=== PATIENT | female | born 2000 | race Caucasian/White ===

== ENCOUNTER 2020-06-15 21:01 | Inpatient (IN) ==
[2020-06-15 22:34] LABS: ABS Lymphocytes 1.9 10^3/ul (1.0-4.8); ABS Monocytes 0.5 10^3/ul (0-0.8); ABS Neutrophils 3.2 10^3/ul (1.5-7.7); Eosinophil % 0.8 %; Hematocrit 38 % (35-47); Hemoglobin 12.9 g/dL (12.0-16.0); Lymphocyte % 33.8 %; Mean Corpuscular HGB Conc 34 g/dL (31-36); Mean Corpuscular Hemoglobin 30 pg (27-31); Mean Corpuscular Volume 89 fL (80-97); Mean Platelet Volume 7.9 fL (7.4-10.4); Platelet Count 259 10^3/uL (150-450); Red Blood Count 4.31 10^6 /uL (3.70-4.87); Red Cell Distribution Width 13 % (10-15); White Blood Count 5.6 10^3/uL (3.5-10.8)
[2020-06-15 22:35] LABS: ALT 17 U/L (7-52); AST 18 U/L (13-39); Albumin 4.6 g/dL (3.2-5.2); Albumin/Globulin Ratio 1.6 (1-3); Alkaline Phosphatase 59 U/L (34-104); Anion Gap 6 mmol/L (2-11); BUN/Creatinine Ratio 14.9 (8-20); Blood Urea Nitrogen 11 mg/dL (6-24); CO2 Carbon Dioxide 26 mmol/L (22-32); Calcium 9.6 mg/dL (8.6-10.3); Chloride 106 mmol/L (101-111); EGFR African American 121.1 (>60); EGFR Non-African American 100.1 (>60); Globulin 2.8 g/dL (2-4); Glucose 96 mg/dL (70-100); Potassium 4.2 mmol/L (3.5-5.0); Sodium 138 mmol/L (135-145); Total Protein 7.4 g/dL (6.4-8.9)
[2020-06-15 22:41] LABS: HCG Pregnancy < 0.60 mIU/mL
[2020-06-15 22:48] LABS: Acetaminophen < 15 mcg/mL; Alcohol, S < 10 mg/dL (<10); Salicylate < 2.50 mg/dL (<30)
[2020-06-15 23:03] LABS: TSH Ultra Thyroid Stim Horm 1.18 mcIU/mL (0.34-5.60)
[2020-06-16 00:26] LABS: Urine Appearance Clear; Urine Bilirubin Negative (Negative); Urine Blood 3+ (Negative); Urine Color Straw; Urine Glucose Negative (Negative); Urine Ketones Negative (Negative); Urine Nitrite Negative (Negative); Urine Protein Negative (Negative); Urine Specific Gravity 1.004 (1.002-1.030); Urine Urobilinogen Negative (Negative)
[2020-06-16 00:34] LABS: Urine Bacteria 1+ (Absent); Urine Red Blood Cell 2+(6-10/hpf) (Absent); Urine Squamous Epithelial Cell Present (Absent); Urine White Blood Cell Trace(0-5/hpf) (Absent)
[2020-06-16 00:45] LABS: Urine Benzodiazepine Screen None Detected (None Detect); Urine Cannabinoids Screen None Detected (None Detect); Urine Opiates Screen None Detected (None Detect)
[2020-06-16] MEDS ORDERED: Al Hydrox/Mg Hydrox/Simet LIQ 30 ML UDC PO PRN (10:38)
[2020-06-17 09:23] LABS: HDL Cholesterol 56.4 mg/dL
[2020-06-17] MEDS: Vitamin THERAPEUTIC TAB PO SCH (13:06)
[2020-06-17] MEDS: CMCS: OMEGA-3 FATTY ACID 1000 mg(NF) PO SCH (16:33)
[2020-06-18] MEDS: CMCS: OMEGA-3 FATTY ACID 1000 mg(NF) PO SCH (09:08)
[2020-06-18] MEDS: Vitamin THERAPEUTIC TAB PO SCH (09:08)
[2020-06-19] MEDS: Vitamin THERAPEUTIC TAB PO SCH (09:09)
[2020-06-19] MEDS: CMCS: OMEGA-3 FATTY ACID 1000 mg(NF) PO SCH (09:10)
[2020-06-20 08:21] VITALS: BP 107/89
[2020-06-20] MEDS: CMCS: OMEGA-3 FATTY ACID 1000 mg(NF) PO SCH (11:14)
[2020-06-20] MEDS: Vitamin THERAPEUTIC TAB PO SCH (11:14)
== END 2020-06-20 14:40 | disposition home or self-care (01) | DRG 754 ==
LOC: ED 21:01 → BSU 06-16 10:38
PROVIDERS: ADMIT Psychiatry & Neurology Psychiatry; ATTEND Psychiatry & Neurology Psychiatry